=== PATIENT | female | born 1990 | race Hispanic/Latino ===

== ENCOUNTER 2016-06-30 08:35 | Outpatient (CLI) | payer OTHER ==
--- NOTE | 2016-06-30 10:53 | CT ---
CERVICAL SPINE CT WITHOUT CONTRAST: Date: 06-30-16 Comparison: None. History: Muscle stiffness of neck, cervical spine pain. Technique: Serial axial CT imaging at 2.5 mm intervals from the skull base through the lung apices without contrast. Coronal and sagittal reformatted imaging obtained. FINDINGS: The imaged lung apices appear unremarkable. There is mucosal thickening involving the alveolar recess of the left maxillary sinus. The occipital condyles, the dens, the atlantoaxial interspace, the craniocervical junction and the c ervicothoracic junction appear within normal limits. Cervical vertebral body height and alignment a ppears normal. There is no prevertebral soft tissue swelling. Evaluation for non-osseous causes of central canal and neural foraminal stenosis is suboptimal on ro utine CT. There is no osseous cause of significant central canal or neural foraminal stenosis at an y level within the cervical spine. There is no evidence for fracture. No lytic or blastic bone les ion. IMPRESSION: Unremarkable noncontrast enhanced CT examination of the cervical spine. If symptoms persist, cervic al spine MRI suggested. POS: [facility]
== END 2016-06-30 08:36 | disposition home or self-care (01) ==
LOC: MADCT 08:35
PROVIDERS: ATTEND Student in an Organized Health Care Education/Training Program
DX: M54.2 Cervicalgia (principal)
CPT/HCPCS: 72125